=== PATIENT | female | born 1955 | race Caucasian/White ===

== ENCOUNTER 2016-06-29 19:05 | Inpatient (IN) | payer OTHER, MEDICARE ==
--- NOTE | ~2016-06-29 | HP ---
History And Physical [id number] [facility] [place]. [address] NAME: CHRISTELLE IBARRA : 57 STATUS : ADM IN [facility]#: [id number] AGE: 61 ADM/REG DATE : 06/29/16 MR#: [id number] REPORT SERV DATE: 06/30/16 DICTATED BY: ANGELA OLVERA DATE: 06/30/16 REPORT STATUS : Draft TRANSCRIBED BY: MODKarina DATE: 06/30/16 DATE OF ADMISSION: 06/29/2016 HISTORY OF PRESENT ILLNESS: The patient is a pleasant 61-year-old white female with a history of coronary artery disease, who presented to the emergency department last night with complaints of right shoulder pain that had begun to radiate across her chest. She reports that the pain started about three days ago, but became worse yesterday and began to radiate leftward across her chest, which caused her to be concerned that it could be cardiac related. She did have some mild shortness of breath, but she is not sure if this was anxiety related or not since she was worried about her heart. The pain was described as severe in the right shoulder and is worse with arm movement as well as with palpation of the shoulder joint area. She also complains of some increased dyspnea on exertion recently. No real chest pain per se. The patient was admitted for further workup, and her initial EKG showed no acute changes, and troponin has been negative x2. Currently, she is resting in bed, in no acute distress. PAST MEDICAL HISTORY: Significant for coronary artery disease, status post previous bypass surgery; as well as fibromyalgia; lupus; Sjogren syndrome; and diabetes. PAST SURGICAL HISTORY: Includes previous neck surgery as well as the above-mentioned coronary artery bypass. The patient's last cardiac catheterization was done on 08/31/2014, which showed a patent internal mammary artery graft to the LAD as well as a patent saphenous vein graft to the diagonal branch. There was small vessel disease involving the right ventricular branch of the right coronary artery and 30% mid vessel lesion in the ramus intermedius branch. The patient's left ventricular ejection fraction at that time was normal at 65%. SOCIAL HISTORY: The patient does not smoke. FAMILY HISTORY: Positive for coronary artery disease in her brother. REVIEW OF SYSTEMS: The patient denies nausea, vomiting, diarrhea, or dysuria. No cough, wheeze, or sputum production. She reports some dyspnea on exertion and fatigue. PHYSICAL EXAMINATION: VITAL SIGNS: Blood pressure is 116/58, heart rate is 80 and regular, and respirations are 16 and nonlabored. GENERAL APPEARANCE: The patient is a well-developed and well-nourished obese female, in no acute distress. HEENT: Unremarkable. NECK: Shows no jugular venous distention with good carotid upstroke. No carotid bruit is appreciated. MUSCULOSKELETAL: The patient's right shoulder has normal passive range of motion, but some guarding noted with movement. There is pain elicited on palpation of the subacromial bursa area. History And Physical [address] [address] NAME: CHRISTELLE IBARRA : 57 STATUS : ADM IN [facility]#: [id number] AGE: 61 ADM/REG DATE : 06/29/16 MR#: [id number] REPORT SERV DATE: 06/30/16 DICTATED BY: ANGELA OLVERA DATE: 06/30/16 REPORT STATUS : Draft TRANSCRIBED BY: MARIA EUGENIA DATE: 06/30/16 CHEST: Clear to auscultation bilaterally. CARDIOVASCULAR: PMI is nondisplaced. S1 is normal. S2 is narrowly split. There is a soft grade 1/6 systolic murmur at the base. No gallop is present. ABDOMEN: Soft and nontender with normal bowel sounds. EXTREMITIES: Show no cyanosis, clubbing, or edema. SKIN: Warm and dry with no pallor or icterus. NEURO/PSYCH: The patient is alert and oriented x3 with appropriate affect. LABORATORY AND DIAGNOSTIC DATA: EKG shows normal sinus rhythm with nonspecific ST-T changes. No acute injury pattern is present. Troponin has been negative x2. Chest x-ray was unremarkable. CBC was also unremarkable. Chemistry panel shows a sodium of 141, potassium 3.9, BUN 9, creatinine 0.83, glucose 105, and magnesium 2.3. IMPRESSION: 1. Dyspnea on exertion in a patient with known coronary artery disease. 2. Right shoulder pain, which appears to be clearly musculoskeletal in nature. 3. Coronary artery disease, status post remote bypass. 4. Diabetes mellitus, which is diet controlled. 5. Lupus. 6. Obesity. PLAN: 1. We will check a nuclear stress test due to the patient's complaints of dyspnea on exertion. 2. Obtain a 3-view x-ray of the right shoulder. 3. We will plan to discharge the patient home if her nuclear scan is normal and have her follow up with Dr. William Baron, who has seen her in the past. BEVERLEY/MARIA EUGENIA Angela Olvera NP / [id number] CC: Bernardo Duke M.D., FGEMA YE
[2016-06-29 15:53] LABS: BASOPHILS 0.3 %; BASOPHILS ABSOLUTE 0.02 10/3/uL (0.0-0.16); EOSINOPHILS 1.5 %; EOSINOPHILS ABSOLUTE 0.09 10/3/uL (0.0-0.53); HEMATOCRIT 41.3 % (36.0-48.0); HEMOGLOBIN 13.5 g/dL (12.0-16.0); IMMATURE GRANULOCYTES 0.2 %; IMMATURE GRANULOCYTES ABSOLUTE 0.01 10/3/uL (0.0-0.11); LYMPHOCYTES 38.4 %; LYMPHOCYTES ABSOLUTE 2.33 10/3/uL (0.67-4.30); MEAN CORPUS HGB CONC 32.7 g/dL (32.0-36.0); MEAN CORPUSCULAR HEMOGLOB 27.8 pg (26.0-34.0); MEAN CORPUSCULAR VOLUME 85.2 fL (80-100); MEAN PLATELET VOLUME 9.9 fL (9.2-13.0); MONOCYTES 6.3 %; MONOCYTES ABSOLUTE 0.38 10/3/uL (0.21-1.20); NEUTROPHILS 53.3 %; NEUTROPHILS ABSOLUTE 3.23 10/3/uL (2.02-8.40); PLATELET COUNT 233 10/3/uL (150-400); RBC DISTRIBUTION WIDTH 14.5 % (12.0-16.0); RED CELL COUNT 4.85 10/6/uL (4.0-5.6); WHITE BLOOD CELLS 6.1 10/3/uL (4.5-10.5)
[2016-06-29 15:54] LABS: MANUAL DIFF NO %
[2016-06-29 16:00] LABS: PARTIAL THROMBO TIME 23.7 SEC (22.5-37.2)
[2016-06-29 16:10] LABS: CALCIUM, SERUM 9.1 MG/DL (8.5-10.4); CHEST PAIN PROFILE TAT 0 Hrs 21 Mins; CHLORIDE, SERUM 102 MMOL/L (96-112); CO2 (CARBON DIOXIDE) 30 MMOL/L (24-34); CREATININE 0.83 MG/DL (0.55-1.02); GFR AFRICAN AMERICAN 89 ML/MIN (>=60); GFR NON AFRICAN AMERICAN 77 ML/MIN (>=60); POTASSIUM, SERUM 3.9 MMOL/L (3.5-5.3); SODIUM, SERUM 141 MMOL/L (135-148); TROPONIN I <0.02 NG/ML (<0.05)
[2016-06-29 16:11] LABS: BUN (BLOOD UREA NITROGEN) 9 MG/DL (6-23); GLUCOSE, SERUM 105 MG/DL (60-99)
[~2016-06-29 19:05] MED LIST: ALLEGRA180 PO; ALTA2.5 PO; ARMOUR THYRO30 MG PO; ASAB PO; ASPRIN PO; B-12 SHOT IM; B121000P IM; CALTRA600D PO; COREG3 PO; CYMBALTA60 PO; CYTO5 PO; HYOMAX-FT0.125 MG PO; HYOMAX-SL0.125 MG PO; KAPIDEX60 MG PO; L20 PO; L40 PO; LEVOTHYROXIN112 MCG PO; LIBRAX PO; LORTAB10 PO; METHOC500B PO; METHOC750B PO; MIRALAXPKT PO; NEXIUM40 PO; NORCO1 TA1 PO; NP THYROID PO; OS250 PO; PLAQ200B PO; PROZAC PO; PROZAC40 MG PO; SUCR PO; SYN.15 PO; SYN125 PO; SYSTANE OP; TRAZ50 PO; TRAZODONE PO; V5 PO; VITAMIN B-121000 MC1 SC; WELLXL300 PO; ZOCOR40 PO; ZOVI200CAP PO; ZOVIRAX400 MG PO; ZYRTEC ALLGY10 MG PO; [UNRECOGNIZED DRUG - CODE] PO; [UNRECOGNIZED DRUG - OTHER] PO; [UNRECOGNIZED DRUG - OTHER] PO; [UNRECOGNIZED DRUG - OTHER] SL
[2016-06-29] MEDS ORDERED: ZOVIRAX400 MG PO (20:06)
[2016-06-29] MEDS ORDERED: ASAB PO (20:06)
[2016-06-29] MEDS ORDERED: WELLXL300 PO (20:07)
[2016-06-29] MEDS ORDERED: NTG150 SL (20:07)
[2016-06-29] MEDS ORDERED: COREG6 PO (20:07)
[2016-06-29] MEDS ORDERED: LIBRAX PO (20:08)
[2016-06-29] MEDS ORDERED: B121000P IM (20:09)
[2016-06-29] MEDS ORDERED: V5 PO (20:10)
[2016-06-29] MEDS ORDERED: KAPIDEX60 MG PO (20:10)
[2016-06-29] MEDS ORDERED: SYNTHROID137 MCG PO (20:15)
[2016-06-29] MEDS ORDERED: L40 PO (20:15)
[2016-06-29] MEDS ORDERED: CYMBALTA60 PO (20:15)
[2016-06-29] MEDS ORDERED: METHOC750B PO (20:16)
[2016-06-29] MEDS ORDERED: MIRALAX POWDER1 PKT PO (20:17)
[2016-06-29] MEDS ORDERED: ZOCOR40 PO (20:17)
[2016-06-29] MEDS ORDERED: ALTA2.5 PO (20:17)
[2016-06-29] MEDS ORDERED: SUCR PO (20:18)
[2016-06-29] MEDS ORDERED: NORCO1 TAB PO (20:48)
[2016-07-24] MEDS ORDERED: NEXIUM40 PO (14:09)
[2016-07-24] MEDS ORDERED: ZYRTEC ALLGY10 MG PO (14:12)
== END 2016-07-01 13:10 | disposition home or self-care (01) | DRG 558 ==
LOC: ER 19:05 → 5NO 19:32
PROVIDERS: Emergency Medicine
DX: M65.811 Other synovitis and tenosynovitis, right shoulder (principal); M32.9 Systemic lupus erythematosus, unspecified; R07.9 Chest pain, unspecified; M79.7 Fibromyalgia; Z95.1 Presence of aortocoronary bypass graft; E11.9 Type 2 diabetes mellitus without complications; E66.9 Obesity, unspecified
CPT/HCPCS: 71020; 73030-RT; 78452; 80048; 83735; 84484; 85025; 85610; 85730; 93005; 93017; 99285; A9270-GY; A9502; J0153; J2405; J2800

== ENCOUNTER 2016-08-15 05:16 | Inpatient (IN) | payer OTHER, MEDICARE ==
[2016-08-14 11:43] LABS: HEMATOCRIT 43.2 % (36.0-48.0); HEMOGLOBIN 14.1 g/dL (12.0-16.0)
[2016-08-14 11:52] LABS: BUN (BLOOD UREA NITROGEN) 9 MG/DL (6-23); CALCIUM, SERUM 9.4 MG/DL (8.5-10.4); CHLORIDE, SERUM 103 MMOL/L (96-112); CO2 (CARBON DIOXIDE) 29 MMOL/L (24-34); CREATININE 0.95 MG/DL (0.55-1.02); GFR AFRICAN AMERICAN 75 ML/MIN (>=60); GFR NON AFRICAN AMERICAN 65 ML/MIN (>=60); POTASSIUM, SERUM 3.6 MMOL/L (3.5-5.3); SODIUM, SERUM 141 MMOL/L (135-148)
[2016-08-14 11:54] LABS: GLUCOSE, SERUM 160 MG/DL (60-99)
--- NOTE | ~2016-08-15 | DS ---
Discharge Summary [facility] [address] [place]. [address] NAME: CHRISTELLE IBARRA : 57 STATUS : DIS IN PAT#: [id number] AGE: 61 ADM/REG DATE : 08/15/16 MR#: [id number] REPORT SERV DATE: 08/29/16 DICTATED BY: DANA LIU II DATE: 08/28/16 REPORT STATUS : Draft TRANSCRIBED BY: MARIA EUGENIA DATE: 08/28/16 Data Collection from hospitalization DISCHARGE DIAGNOSES: 1. Right upper extremity radiculopathy secondary to C7-T1 stenosis and adjacent segment degeneration. 2. Anterior and posterior cord and nerve root compression. 3. Diabetes. 4. Hypertension. 5. Anemia. 6. Anxiety. 7. Cataract. 8. Depression. 9. Eczema. 10.Fibromyalgia. 11.Gastroesophageal reflux disease. 12.History of cardiovascular disease. 13.Irritable bowel syndrome. 14.Lupus erythematosus. 15.History of myocardial infarction. 16.Osteoarthritis. CONSULTATIONS: None. PROCEDURES PERFORMED: Posterior C7-T1 laminectomy and facetectomy; posterolateral arthrodesis at C7-T1; posterior nonsegmental instrumentation at C7-T1; use of local autograft/allograft substitute and bone morphogenetic protein; use of stereotactic spinal imaging, 08/15/2016. PATHOLOGY: Cervical spine repair-fragmented bone and soft tissue. No evidence was seen of an infectious or neoplastic process. DISCHARGE MEDICATIONS: Zovirax 400 mg twice a day, aspirin 81 mg daily, Wellbutrin XL 300 mg daily, Coreg 6.25 mg twice a day, Zyrtec 10 mg daily, Librax one capsule with breakfast and supper, vitamin B12 1000 mcg IM every fourteen days, Valium 5 mg every six hours, Cymbalta 60 mg daily, Nexium 40 mg daily, Lasix 40 mg daily, Holcombe 10/325 one tablet every six hours as needed, Synthroid 137 mcg daily, Robaxin 750 mg at bedtime, MS Contin 15 mg every 12 hours, nitroglycerin 0.4 mg sublingually as needed for chest pain, MiraLAX powder one packet at bedtime, Altace 2.5 mg daily, Zocor 40 mg at bedtime, Carafate 1 g twice a day. CONDITION AT DISCHARGE: Stable. DISPOSITION: The patient was discharged home on a regular diet with activities as instructed. She would follow up with me, 09/07/2016. HOSPITAL COURSE: This is a 61-year-old female, who complained of cervical-related symptoms. The symptoms were located in the neck with radiation into the right upper extremity with associated burning, numbness, tingling, and weakness. The patient has right upper extremity Discharge Summary [id number] [id number] NAME: CHRISTELLE IBARRA : 57 STATUS : DIS IN PAT#: [id number] AGE: 61 ADM/REG DATE : 08/15/16 MR#: [id number] REPORT SERV DATE: 08/29/16 DICTATED BY: DANA LIU II DATE: 08/28/16 REPORT STATUS : Draft TRANSCRIBED BY: MARIA EUGENIA DATE: 08/28/16 radiculopathy secondary to C7-T1 stenosis and adjacent segment degeneration. There was anterior and posterior cord and nerve root compression. Treatment options were discussed and it was elected to proceed with surgical intervention. She was admitted to the hospital at this time for further evaluation and treatment. Upon admission, she was taken to the operating room, where she underwent the above-mentioned procedure. She tolerated this well and there were no complications. On postop day one, she was stable, she looked good. We encouraged her to mobilize. She was evaluated by Physical Therapy. She continued to progress. Discharge planning was performed. On 08/18/2016, upper extremity radiculopathy was improving. She did complain of postop pain. She was still on O2. Discharge instructions were given. Due to her improved and stable condition, she was discharged home with the above-stated instructions. Information collected by: Gita Au I submit the above information as my discharge summary. TG/MODKarina Dana Liu II, M.D. / [id number] CC: Ron Posada II, SONJA B
--- NOTE | ~2016-08-15 | OP ---
Record Of Operation [facility] [address] [place]. [address] NAME: CHRISTELLE IBARRA : 57 STATUS : ADM [facility]ero PAT#: [id number] AGE: 61 ADM/REG DATE : 08/15/16 MR#: [id number] REPORT SERV DATE: 08/16/16 DICTATED BY: DANA LIU II DATE: 08/16/16 REPORT STATUS : Draft TRANSCRIBED BY: MODKarina DATE: 08/16/16 DATE OF PROCEDURE: 08/15/2016 PREOPERATIVE DIAGNOSES: 1. Right upper extremity radiculopathy secondary to C7-T1 stenosis and adjacent segment degeneration. 2. Anterior and posterior cord and nerve root compression. POSTOPERATIVE DIAGNOSES: 1. Right upper extremity radiculopathy secondary to C7-T1 stenosis and adjacent segment degeneration. 2. Anterior and posterior cord and nerve root compression. PROCEDURE: 1. Posterior C7-T1 laminectomy and facetectomy. 2. Posterolateral arthrodesis, C7-T1. 3. Posterior nonsegmental instrumentation, C7-T1. 4. Use of local autograft/allograft substitute and bone morphogenic protein. 5. Use of stereotactic spinal imaging. SURGEON: Dana Liu M.D. FLUIDS: 1700 mL LR. EBL: 100 mL. DRAINS: One drain. COMPLICATIONS: None. ANTIBIOTICS: Preoperatively. IMPLANT: Alphatec. PREOPERATIVE HISTORY: This is a very friendly 61-year-old female, who did very well following a C4-C7 fusion approximately 5 years ago. She is now having pain radiating from the base of the neck into the right upper extremity and down into the ulnar aspect of the hand. She was found to have C7-T1 stenosis. We discussed the pros and cons of surgery. DESCRIPTION OF PROCEDURE: After informed consent was obtained, the patient was brought to the operating room at her request and general anesthesia achieved. The [place] tongs were applied, she was placed into the prone position, and the posterior neck and posterior thoracic region were prepped and draped in a sterile fashion. The intraoperative CT scan was completed. The stereotactic guidance was then used throughout the remainder of the case. Record Of Operation [facility] [address] [place]. [address] NAME: CHRISTELLE IBARRA : 57 STATUS : ADM [place]ero PAT#: [id number] AGE: 61 ADM/REG DATE : 08/15/16 MR#: [id number] REPORT SERV DATE: 08/16/16 DICTATED BY: DANA LIU II DATE: 08/16/16 REPORT STATUS : Draft TRANSCRIBED BY: MARIA EUGENIA DATE: 08/16/16 Next, an incision was made and the subperiosteal exposure was completed from approximately C6-T2. The deep retractors were placed followed by creation of the pilot can router holes for the lateral mass screws at C7 and the pedicle screw holes at T1. Next, under loupe magnification and head lamp, the laminectomy and facetectomy were performed. The central canal was decompressed and the cord well decompressed from the posterior ligament and osteophytes. Next, the right-sided facetectomy was performed. We removed greater than 50% of the joint on the right. The C8 nerve root was now found to be well decompressed. Irrigation was now performed. Next, the posterior nonsegmental instrumentation was applied and a repeat CT scan performed. We had to then revise the right T1 screw as it was slightly lateral. A repeat CT scan confirmed acceptable placement of the implants now. The rods were well assembled and final tightening performed. Next, the decortication was performed of the transverse processes of T1 and the lateral masses of C7. The joint was also decorticated. The decorticated surface was now addressed and local autograft/allograft substitute and bone morphogenic protein placed along these decorticated surfaces. A deep drain was placed followed by standard closure, and the patient was then extubated and transferred to PACU in stable condition. ODETTE/MARIA EUGENIA Dana Liu II, M.D. / [id number] CC: Ron Posada II, MD
[~2016-08-15 05:16] MED LIST changes: +COREG6 PO; +MIRALAX POWDER1 PKT PO; +NORCO1 TAB PO; +NTG150 SL; +SYNTHROID137 MCG PO
[2016-08-18] MEDS ORDERED: NORCO1 TAB PO (16:23)
[2016-08-18] MEDS ORDERED: V5 PO (16:25)
[2016-08-18] MEDS ORDERED: MSCONT15 PO (16:26)
== END 2016-08-18 17:31 | disposition home or self-care (01) | DRG 472 ==
LOC: SDC 05:16 → SDC/OF 11:48 → 3SO 13:33
PROVIDERS: Orthopaedic Surgery
PROC: 0RG4071 Fusion of Cervicothoracic Vertebral Joint with Autologous Tissue Substitute, Posterior Approach, Posterior Column, Open Approach (ICD-10-PCS; principal; 2016-08-15 07:00)
PROC: 4A11X4G Monitoring of Peripheral Nervous Electrical Activity, Intraoperative, External Approach (ICD-10-PCS; 2016-08-15 07:00)
DX: M50.13 Cervical disc disorder with radiculopathy, cervicothoracic region (principal); M50.03 Cervical disc disorder with myelopathy, cervicothoracic region; M32.9 Systemic lupus erythematosus, unspecified; E11.9 Type 2 diabetes mellitus without complications; I10 Essential (primary) hypertension; F41.9 Anxiety disorder, unspecified; H26.9 Unspecified cataract; F32.9 Major depressive disorder, single episode, unspecified; L30.9 Dermatitis, unspecified; M79.7 Fibromyalgia; K21.9 Gastro-esophageal reflux disease without esophagitis; K58.9 Irritable bowel syndrome, unspecified; I25.2 Old myocardial infarction; I25.10 Atherosclerotic heart disease of native coronary artery without angina pectoris; Z95.1 Presence of aortocoronary bypass graft
CPT/HCPCS: 71020; 80048; 82962; 85014; 85018; 87641; 88304; 88311; 97116-GP; 97161-GP; A9270-GY; C1713; C1768; J0690; J1170; J1200; J2250; J2405; J2710; J3010